=== PATIENT | female | born 1970 | race Caucasian/White ===

== ENCOUNTER 2021-01-07 15:19 | Outpatient (CLI) | payer OTHER, SELFPAY ==
--- NOTE | ~2021-01-07 | MM_ITS ---
EXAMINATION: MM scrn yosi implant BI w cheli HISTORY: Screening mammogram TECHNIQUE: Craniocaudal and mediolateral oblique 3-D tomosynthesis images with implant displacement a nd synthetic 2-D images were generated. Craniocaudal and mediolateral oblique views of the breasts wi thout implant displacement were obtained using full field digital mammography. CAD analysis was submi tted and interpreted. COMPARISON: 08/11/2016, 12/29/2014, 12/26/2013 BREAST PARENCHYMAL COMPOSITION: There are scattered areas of fibroglandular density. FINDINGS: Small right breast masses demonstrate interval decrease in size comparison examinations, co nsistent with benign findings. There is no evidence of suspicious mass, calcification, or architectur al distortion to suggest malignancy in either breast. There has been no suspicious interval change. IMPRESSION: 1. No mammographic evidence of malignancy. 2. Recommend routine screening mammography in one year. BI-RADS Category 2: Benign finding(s). Reviewed, dictated and finalized at location A.
== END 2021-01-07 15:20 | disposition home or self-care (01) ==
LOC: ANHIMG 15:20
PROVIDERS: PCP Nurse Practitioner; Visit Provider Nurse Practitioner
DX: Z12.31 Encounter for screening mammogram for malignant neoplasm of breast (principal)
CPT/HCPCS: 77063; 77067

== ENCOUNTER → 2021-03-09 01:20 | Outpatient (CLI) | payer OTHER, SELFPAY ==
[2021-03-10 20:43] LABS: SARS-CoV-2 RNA PCR Negative
== END ==
PROVIDERS: PCP Family Medicine; Visit Provider Family Medicine
DX: Z20.822 Contact with and (suspected) exposure to COVID-19 (principal)
CPT/HCPCS: C9803; U0003; U0005

== ENCOUNTER 2022-04-21 09:13 | Outpatient (CLI) | payer OTHER, SELFPAY ==
--- NOTE | ~2022-04-21 | MM_ITS ---
EXAMINATION: MM scrn yosi implant BI w cheli HISTORY: Screening mammogram TECHNIQUE: Craniocaudal and mediolateral oblique 3-D tomosynthesis images with implant displacement a nd synthetic 2-D images were generated. Craniocaudal and mediolateral oblique views of the breasts wi thout implant displacement were obtained using full field digital mammography. CAD analysis was submi tted and interpreted. COMPARISON: Comparison to multiple prior studies sequentially, with oldest reviewed study dated 07/2014. BREAST PARENCHYMAL COMPOSITION: There are scattered areas of fibroglandular density. FINDINGS: There are bilateral subpectoral silicone implants. There is no evidence of suspicious mass, calcification, or architectural distortion to suggest malignancy in either breast. There has been no suspicious interval change. IMPRESSION: 1. No mammographic evidence of malignancy. 2. Recommend routine screening mammography in one year. BI-RADS Category 1: Negative Reviewed, dictated and finalized at location A.
== END 2022-04-21 09:14 | disposition home or self-care (01) ==
LOC: ANHIMG 09:14
PROVIDERS: PCP Family Medicine; Visit Provider Nurse Practitioner
DX: Z12.31 Encounter for screening mammogram for malignant neoplasm of breast (principal)
CPT/HCPCS: 77063; 77067

== ENCOUNTER 2022-09-14 15:50 | Outpatient (CLI) | payer OTHER, SELFPAY ==
--- NOTE | ~2022-09-14 | XR_ITS ---
XR shoulder RT min 2V 09/14/2022 16:15 Indication: Right shoulder pain Procedure: 4 views right shoulder Comparison: No prior studies for comparison. Findings: No fracture, subluxation or dislocation. There is anatomic alignment. No erosive changes. V isualized lung parenchyma is unremarkable. Impression: 1: No significant bone or joint abnormality. Reviewed, dictated and finalized at location A. Impression: 1: No significant bone or joint abnormality.
== END 2022-09-14 15:51 | disposition home or self-care (01) ==
PROVIDERS: PCP Family Medicine; Visit Provider Family Medicine
DX: M25.511 Pain in right shoulder (principal)
CPT/HCPCS: 73030

== ENCOUNTER 2024-06-26 04:57 | Emergency (ER) | payer OTHER, SELFPAY ==
--- NOTE | ~2024-06-26 | XR_ITS ---
EXAMINATION: XR knee RT 3V DATE: 06/26/2024 07:16 INDICATION: Right knee pain. TECHNIQUE: 3 views of right knee were obtained. COMPARISON: None. FINDINGS: Alignment is normal. No fracture. There is mild osteoarthritis of medial and patellofemoral compartments characterized by tiny osteophytes. There is a small knee joint effusion. IMPRESSION: 1. Mild right knee osteoarthritis. 2. Small knee joint effusion. Reviewed, dictated and finalized at location A. ING INSULATION BLOWER
[2024-06-26 05:02] VITALS: BP 120/61; PULSE 65; RESP 18; TEMP 36.3; O2SAT 100
[2024-06-26 06:51] VITALS: BP 115/72; PULSE 71; RESP 18; O2SAT 100
--- NOTE | 2024-06-26 07:35 | ED.GENADULT ---
HPI - General Adult General Chief complaint: Extremity Injury, Lower Stated complaint: R knee pain Time Seen by Provider: 06/26/24 06:50 History of Present Illness HPI narrative: 54-year-old female presenting to the emergency department for evaluation for right knee pain. 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 Patient states that the pain is worsened when stepping out of her truck and she impact on her right knee. Patient states the pain does tend to improve a little bit with further ambulation. Patient reports over the last few days the pain has continued to worsening even does bother her at nighttime. Related Data Home Medications ?Medication ?Instructions ?Recorded ?Confirmed ?Last Taken ?Type izbaawcataag-Sj-ngwy-minerals tablet PO 12/15/20 12/11/23 Unknown History (Multiple Vitamin, Womens tablet) Allergies Allergy/AdvReac Type Severity Reaction Status Date / Time No Known Allergies Allergy Unknown Verified 06/26/24 10:59 Review of Systems Review of Systems: All systems reviewed & are unremarkable except as noted in HPI and below PMFSH Past Medical History Medical History Recurrent herpes labialis COVID Well woman exam with routine gynecological exam Vitamin D deficiency Recurrent low back pain Anxiety Hypothyroidism, unspecified Surgical History Surgical History History of lumpectomy of left breast (~10/2011) H/O breast augmentation (~05/2015) Social History Social History Social History: Caffeine-coffee daily Smoking status: Never smoker Second hand tobacco smoke exposure: Yes Alcohol intake: current Alcohol use details: 2x a week Substance use: unknown Lack of Transportation: No Lack of Food: Never True Current Housing: I Have Housing Concerned About Future Housing: No Difficulty Paying Gas/Electric Bills: No Difficulty Paying for Meds: No Currently Unemployed: No Education: Associate Degree Difficulty w/ Childcare or Family Care: No Exam Narrative: APPEARANCE: Well appearing, no pain, no distress, well-nourished. HEAD: normocephalic, atraumatic. EYES: PERRLA/EOMI, conjunctivae clear. NOSE: Normal no drainage EARS:TMS clear with good light reflex. THROAT: Pharynx clear, no exudate. NECK: Supple. No adenopathy, no masses. RESPIRATORY: Airway patent, respirations nonlabored. Clear to auscultation bilaterally, no rales, rhonchi, wheezing. CARDIOVASCULAR: Regular rate and rhythm without murmurs rubs or gallops. ABDOMINAL: Soft, nontender, nondistended, normal bowel sounds MUSCULOSKELETAL: Moves all extremities. Strength/ROM intact, No edema, No calf tenderness. NEURO: Alert. Cranial nerves II through XII intact. Good gait. Good coordination SKIN: Warm, dry. Normal Color Course Vital Signs Vital signs: Vital Signs Temperature 97.4 F L 06/26/24 05:02 Pulse Rate 65 06/26/24 05:02 Respiratory Rate 18 06/26/24 05:02 Blood Pressure 120/61 06/26/24 05:02 Pulse Oximetry 100 06/26/24 05:02 Oxygen Delivery Room Air 06/26/24 05:02 Temperature 97.3 F L 06/26/24 08:32 Pulse Rate 71 06/26/24 06:51 Respiratory Rate 16 06/26/24 08:32 Blood Pressure 115/72 06/26/24 06:51 Pulse Oximetry 100 06/26/24 06:51 Oxygen Delivery Room Air 06/26/24 05:02 Medical Decision Making MDM Narrative Medical decision making narrative: 54-year-old female presenting to the emergency department for evaluation for right knee pain. Patient does work as a registered mail clerk and thinks she may have strained her knee. X-ray showed no acute fracture dislocation. X-rays do show osteoarthritis and a small knee effusion. Patient has no significant edema or ecchymosis of the right knee. Patient was offered crutches and knee immobilizer for limited weight-bearing. Patient declined the crutches and prefers to wear a knee brace. Patient was educated on home treatment and the importance having close follow-up with Orthopedics. Differential Diagnosis Differential Diagnosis: Osteoarthritis, knee contusion, knee effusion, knee strain Vital Signs Vital Signs: Vital Signs Temperature 97.4 F L 06/26/24 05:02 Pulse Rate 65 06/26/24 05:02 Respiratory Rate 18 06/26/24 05:02 Blood Pressure 120/61 06/26/24 05:02 Pulse Oximetry 100 12/26/24 05:02 Oxygen Delivery Room Air 06/26/24 05:02 Temperature 97.3 F L 06/26/24 08:32 Pulse Rate 71 06/26/24 06:51 Respiratory Rate 16 06/26/24 08:32 Blood Pressure 115/72 06/26/24 06:51 Pulse Oximetry 100 06/26/24 06:51 Oxygen Delivery Room Air 06/26/24 05:02 Imaging Data Radiologist's impression: Impressions Knee X-Ray 06/26/24 07:21 IMPRESSION: 1. Mild right knee osteoarthritis. 2. Small knee joint effusion. Discharge Plan Discharge Clinical Impression: Acute pain of right knee Patient Disposition: Home, Self-Care Condition: Stable Instructions: Antibiotic Form, Knee Pain (ED) Additional Instructions: Crutches were recommended for limited weight-bearing but you preferred to just use the knee brace. If you have any worsening symptoms please call or return to the emergency department. Have close follow-up with your primary care physician and with orthopedics. Scheduled ibuprofen to help with inflammation. [place] as needed for additional pain. If you have any worsening symptoms then please call or return to the emergency department. Patient Language: Tristanian Prescriptions: New hydrocodone-acetaminophen 5-325 mg tablet 1 tablet PO Q12H PRN (Reason: pain) Qty: 10 0RF No Action meloxicam 15 mg tablet 15 mg PO DAILY Qty: 30 0RF valacyclovir 1 gram tablet 1,000 mg PO Q12H PRN (Reason: cold sores) Qty: 20 0RF Rx Instructions: 2 tabs po bid for 1 day as needed for cold sores Multiple Vitamin, Womens Tablet PO cyclobenzaprine 5 mg tablet See Rx Instructions .ROUTE .COMPLEX Qty: 30 1RF Dose Instruction: TAKE 1 TABLET BY MOUTH EVERY DAY AT BEDTIME NEEDED FOR MUSCLE SPASM Rx Instructions: TAKE 1 TABLET BY MOUTH EVERY DAY AT BEDTIME NEEDED FOR MUSCLE SPASM levothyroxine 112 mcg tablet 112 mcg PO DAILY Qty: 90 1RF alprazolam 0.5 mg tablet 0.25 mg PO BID PRN (Reason: anxiety) Qty: 30 0RF Follow-up/Referrals: John Smith MD [Primary Care Provider] - Antonio Sierra MD [Physician] - Stand Alone Forms: Work/School Release IP
[2024-06-26 08:32] VITALS: RESP 16; TEMP 36.3
--- OUTSIDE RECORDS SUMMARY | 2024-07-03 05:23 | XMS_ITS | Encounter Summary ---
Author Organization [facility] Address [address] [place] [address]. [place] [address] [place] [address] Care Team Providers Care Band Leader Name Role Phone Harjinder Calle MD Primary Care Provider Unava Harjinder Taveras MD Primary Care Provider Unava Harjinder Taveras MD Primary Care Provider Unava ilable Encounter Details Date Type Department Care Team (Late st Contact Info) Description 05/07/2007 Abstract [facility] CONVERSION [address] [place] [address] Hawa Borrero, CUSTOMER SERVICE SUPERVISOR [address] [place] [address] Social History Tobacco Use Types Packs/Day Years Used Date Smoking Tobacco: Never Assessed Comments Unknown Sex and Gender Information Value Date Recorded Sex Assigned at Not on file Legal Sex Female 7:22 PM CDT Gender Identity Not on file Sexual Orientation Not on file documented as of this encounter Plan of Treatment Not on file documented as of this encounter Visit Diagnoses Not on filedocumented in this encounter Care Teams Band Leader Relationship Specialty Start Date End Date Harjinder Calle MD PCP - General 07/19/12 Harjinder Calle MD PCP - General 07/18/12 07/18/12 Harjinder Calle MD PCP - General 07/15/12 07/17/12 documented as of this encounter
--- OUTSIDE RECORDS SUMMARY | 2024-07-03 05:23 | XMS_ITS | Encounter Summary ---
Author Organization [facility] Address [address] [place] [address]. [place] [address] [place] [address] Care Team Providers Care Airframe And Powerplant Mechanic Name Role Phone Harjinder Calle MD Primary Care Provider Unava Harjinder Taveras MD Primary Care Provider Unava Harjinder Taveras MD Primary Care Provider Unava ilable Encounter Details Date Type Department Care Team (Late st Contact Info) Description 03/15/2011 Abstract [facility] [address] [place], [place] [id number] Bri Mccloud MD [address] [place] [address] Social History Tobacco Use Types Packs/Day Years Used Date Smoking Tobacco: Never Assessed Comments Unknown Sex and Gender Information Value Date Recorded Sex Assigned at Not on file Legal Sex Female 7:22 PM CDT Gender Identity Not on file Sexual Orientation Not on file documented as of this encounter Plan of Treatment Not on file documented as of this encounter Visit Diagnoses Diagnosis Special screening examination for other specified viral diseases documented in this encounter Care Teams Airframe And Powerplant Mechanic Relationship Specialty Start Date End Date Harjinder Calle MD PCP - General 07/19/12 Harjinder Calle MD PCP - General 07/18/12 07/18/12 Harjinder Calle MD PCP - General 07/15/12 07/17/12 documented as of this encounter
--- OUTSIDE RECORDS SUMMARY | 2024-07-03 05:23 | XMS_ITS | Encounter Summary ---
Author Organization [facility] Address [address] [place] [address]. [place] [address] [place] [address] Care Team Providers Care Supervisor Die Casting Name Role Phone Harjinder Calle MD Primary Care Provider Unava Harjinder Taveras MD Primary Care Provider Unava Harjinder Taveras MD Primary Care Provider Unava ilable Encounter Details Date Type Department Care Team (Late st Contact Info) Description 07/06/2009 Abstract [facility] CONVERSION [address] [place], [place] [id number] Davon Jurado MD [address] [address] Social History Tobacco Use Types Packs/Day Years [...] on filedocumented in this encounter Care Teams Supervisor Die Casting Relationship Specialty Start Date End Date Harjinder Calle MD PCP - General 07/19/12 Harjinder Calle MD PCP - General 07/18/12 07/18/12 Harjinder Calle MD PCP - General 07/15/12 07/17/12 documented as of this encounter
--- OUTSIDE RECORDS SUMMARY | 2024-07-03 05:23 | XMS_ITS | Encounter Summary ---
Author Organization [facility] Address [address] [place] [address]. [place] [address] [place] [address] Care Team Providers Care Edging Machine Setter Name Role Phone Harjinder Calle MD Primary Care Provider Unava Harjinder Taveras MD Primary Care Provider Unava Harjinder Taveras MD Primary Care Provider Unava ilable Encounter Details Date Type Department Care Team (Late st Contact Info) Description 03/20/2012 Abstract [facility] [address] [place] [address] Hawa Borrero GEAR AND SPLINE GRINDER [address] [place] [address] Social History Tobacco Use Types Packs/Day Years Used Date Smoking Tobacco: Never Assessed Comments Unknown Sex and Gender Information Value Date Recorded Sex Assigned at Not on file Legal Sex Female 7:22 PM CDT Gender Identity Not on file Sexual Orientation Not on file documented as of this encounter Plan of Treatment Not on file documented as of this encounter Visit Diagnoses Diagnosis Screening examination for sexually transmitted disease Screening examination for venereal disease documented in this encounter Care Teams Edging Machine Setter Relationship Specialty Start Date End Date Harjinder Calle MD PCP - General 07/19/12 Harjinder Calle MD PCP - General 07/18/12 07/18/12 Harjinder Calle MD PCP - General 07/15/12 07/17/12 documented as of this encounter
--- OUTSIDE RECORDS SUMMARY | 2024-07-03 05:23 | XMS_ITS | Encounter Summary ---
Author Organization [facility] Address [address] [place] [address]. [place], [place] [address] [place] [address] Care Team Providers Care Footwear Factory Worker Name Role Phone Harjinder Calle MD Primary Care Provider Unava Harjinder Taveras MD Primary Care Provider Unava Harjinder Taveras MD Primary Care Provider Unava ilable Encounter Details Date Type Department Care Team (Late st Contact Info) Description 04/24/2006 Abstract [facility] CONVERSION [address] [place] [address] Harjinder Calle MD Social History Tobacco Use Types Packs/Day Years [...] on filedocumented in this encounter Care Teams Footwear Factory Worker Relationship Specialty Start Date End Date Harjinder Calle MD PCP - General 07/19/12 Harjinder Calle MD PCP - General 07/18/12 07/18/12 Harjinder Calle MD PCP - General 07/15/12 07/17/12 documented as of this encounter
--- OUTSIDE RECORDS SUMMARY | 2024-07-03 05:23 | XMS_ITS | Encounter Summary ---
Author Organization [facility] Address [address] [place] [address]. [place] [address] [place] [address] Care Team Providers Care Mechanical Systems Designer Name Role Phone Harjinder Calle MD Primary Care Provider Unava Harjinder Taveras MD Primary Care Provider Unava Harjinder Taveras MD Primary Care Provider Unava ilable Encounter Details Date Type Department Care Team (Late st Contact Info) Description 11/04/2010 Abstract [facility] [address] [place] [address] Hawa Borrero SENIOR TRAINER [address] [place] [address] Social History Tobacco Use Types Packs/Day Years [...] Visit Diagnoses Diagnosis Special screening examination for chlamydial disease Special screening examination for unspecified chlamydial disease documented in this encounter Care Teams Mechanical Systems Designer Relationship Specialty Start Date End Date Harjinder Calle MD PCP - General 07/19/12 Harjinder Calle MD PCP - General 07/18/12 07/18/12 Harjinder Calle MD PCP - General 07/15/12 07/17/12 documented as of this encounter
--- OUTSIDE RECORDS SUMMARY | 2024-07-03 05:23 | XMS_ITS | Encounter Summary ---
Author Organization [facility] Address [address] [place] [address]. [place], [place] [address] [place] [address] Care Team Providers Care Physical Education Department Chair Name Role Phone Harjinder Calle MD Primary Care Provider Unava Harjinder Taveras MD Primary Care Provider Unava Harjinder Taveras MD Primary Care Provider Unava ilable Encounter Details Date Type Department Care Team (Late st Contact Info) Description 08/23/2010 Abstract [facility] [address] [place] [address] Harjinder Calle MD Social History Tobacco Use [...] as of this encounter Visit Diagnoses Diagnosis Hypothyroidism Unspecified hypothyroidism documented in this encounter Care Teams Physical Education Department Chair Relationship Specialty Start Date End Date Harjinder Calle MD PCP - General 07/19/12 Harjinder Calle MD PCP - General 07/18/12 07/18/12 Harjinder Calle MD PCP - General 07/15/12 07/17/12 documented as of this encounter
--- OUTSIDE RECORDS SUMMARY | 2024-07-03 05:23 | XMS_ITS | Encounter Summary ---
Author Organization [facility] Address [address] [place] [address]. [place], [place] [address] [place] [address] Care Team Providers Care Electro Mechanical Engineer Name Role Phone Harjinder Calle MD Primary Care Provider Unava Harjinder Taveras MD Primary Care Provider Unava Harjinder Taveras MD Primary Care Provider Unava ilable Encounter Details Date Type Department Care Team (Late st Contact Info) Description 07/07/2003 Abstract [facility] CONVERSION [address] [place], [place] [id number] , Generic MD E[place] Social History Tobacco Use Types Packs/Day Years [...] on filedocumented in this encounter Care Teams Electro Mechanical Engineer Relationship Specialty Start Date End Date Harjinder Calle MD PCP - General 07/19/12 Harjinder Calle MD PCP - General 07/18/12 07/18/12 Harjinder Calle MD PCP - General 07/15/12 07/17/12 documented as of this encounter
--- OUTSIDE RECORDS SUMMARY | 2024-07-03 05:23 | XMS_ITS | Encounter Summary ---
Author Organization [facility] Address [address] [place] [address]. [place], [place] [address] [place] [address] Care Team Providers Care Conical Mixer Name Role Phone Harjinder Calle MD Primary Care Provider Unava Harjinder Taveras MD Primary Care Provider Unava Harjinder Taveras MD Primary Care Provider Unava ilable Encounter Details Date Type Department Care Team (Late st Contact Info) Description 08/02/2005 Abstract [facility] CONVERSION [address] [place] [address] Harjinder Calle MD Social History Tobacco Use [...] on filedocumented in this encounter Care Teams Conical Mixer Relationship Specialty Start Date End Date Harjinder Calle MD PCP - General 07/19/12 Harjinder Calle MD PCP - General 07/18/12 07/18/12 Harjinder Calle MD PCP - General 07/15/12 07/17/12 documented as of this encounter
--- OUTSIDE RECORDS SUMMARY | 2024-07-03 05:23 | XMS_ITS | Encounter Summary ---
Author Organization [facility] Address [address] [place] [address]. [place] [address] [place] [address] Care Team Providers Care Ash Collector Name Role Phone Harjinder Calle MD Primary Care Provider Unava Harjinder Taveras MD Primary Care Provider Unava Harjinder Taveras MD Primary Care Provider Unava ilable Encounter Details Date Type Department Care Team (Late st Contact Info) Description 02/12/2008 Abstract [facility] [address] [place], [place] [address] Hawa Borrero, GORE MAKER [address] [place] [address] Social History Tobacco Use Types Packs/Day Years [...] on filedocumented in this encounter Care Teams Ash Collector Relationship Specialty Start Date End Date Harjinder Calle MD PCP - General 07/19/12 Harjinder Calle MD PCP - General 07/18/12 07/18/12 Harjinder Calle MD PCP - General 07/15/12 07/17/12 documented as of this encounter
--- OUTSIDE RECORDS SUMMARY | 2024-07-03 05:23 | XMS_ITS | Encounter Summary ---
Author Organization [facility] Address [address] [place] [address]. [place], [place] [address] [place] [address] Care Team Providers Care Financial Investment Adviser Name Role Phone Harjinder Calle MD Primary Care Provider Unava Harjinder Taveras MD Primary Care Provider Unava Harjinder Taveras MD Primary Care Provider Unava ilable Encounter Details Date Type Department Care Team (Late st Contact Info) Description 03/27/2003 Abstract [facility] CONVERSION [address] [place], [place] [id number] , Generic MD [place] Social History Tobacco [...] on filedocumented in this encounter Care Teams Financial Investment Adviser Relationship Specialty Start Date End Date Harjinder Calle MD PCP - General 07/19/12 Harjinder Calle MD PCP - General 07/18/12 07/18/12 Harjinder Calle MD PCP - General 07/15/12 07/17/12 documented as of this encounter
--- OUTSIDE RECORDS SUMMARY | 2024-07-03 05:23 | XMS_ITS | Encounter Summary ---
Author Organization [facility] Address [address] [place] [address]. [place], [place] [address] [place] [address] Care Team Providers Care Tripoler Name Role Phone Harjinder Calle MD Primary Care Provider Unava Harjinder Taveras MD Primary Care Provider Unava Harjinder Taveras MD Primary Care Provider Unava ilable Encounter Details Date Type Department Care Team (Late st Contact Info) Description 05/19/2009 Abstract [facility] CONVERSION [address] [place] [address] Harjinder Calle MD Social History Tobacco Use [...] on filedocumented in this encounter Care Teams Tripoler Relationship Specialty Start Date End Date Harjinder Calle MD PCP - General 07/19/12 Harjinder Calle MD PCP - General 07/18/12 07/18/12 Harjinder Calle MD PCP - General 07/15/12 07/17/12 documented as of this encounter
--- OUTSIDE RECORDS SUMMARY | 2024-07-03 05:23 | XMS_ITS | Encounter Summary ---
Author Organization [facility] Address [address] [place] [address]. [place] [address] [place] [address] Care Team Providers Care Teenage Program Director Name Role Phone Harjinder Calle MD Primary Care Provider Unava Harjinder Taveras MD Primary Care Provider Unava Harjinder Taveras MD Primary Care Provider Unava ilable Encounter Details Date Type Department Care Team (Late st Contact Info) Description 04/26/2004 Abstract [facility] CONVERSION [address] [place], [place] [address] Hawa Borrero, ENGINEERING TECHNOLOGIST [address] [place] [address] Social History Tobacco Use Types Packs/Day Years [...] on filedocumented in this encounter Care Teams Teenage Program Director Relationship Specialty Start Date End Date Harjinder Calle MD PCP - General 07/19/12 Harjinder Calle MD PCP - General 07/18/12 07/18/12 Harjinder Calle MD PCP - General 07/15/12 07/17/12 documented as of this encounter
--- OUTSIDE RECORDS SUMMARY | 2024-07-03 05:23 | XMS_ITS | Encounter Summary ---
Author Organization [facility] Address [address] [place] [address]. [place], [place] [address] [place] [address] Care Team Providers Care Manager Quality Improvement Name Role Phone Harjinder Calle MD Primary Care Provider Unava Harjinder Taveras MD Primary Care Provider Unava Harjinder Taveras MD Primary Care Provider Unava ilable Encounter Details Date Type Department Care Team (Late st Contact Info) Description 06/02/2009 Abstract [facility] CONVERSION [address] [place] [address] Harjinder Calle MD Social History Tobacco Use [...] on filedocumented in this encounter Care Teams Manager Quality Improvement Relationship Specialty Start Date End Date Harjinder Calle MD PCP - General 07/19/12 Harjinder Calle MD PCP - General 07/18/12 07/18/12 Harjinder Calle MD PCP - General 07/15/12 07/17/12 documented as of this encounter
--- OUTSIDE RECORDS SUMMARY | 2024-07-03 05:23 | XMS_ITS | Encounter Summary ---
Author Organization [facility] Address [address] [place] [address]. [place] [address] [place] [address] Care Team Providers Care Insurance Agency Manager Name Role Phone Harjinder Calle MD Primary Care Provider Unava Harjinder Taveras MD Primary Care Provider Unava Harjinder Taveras MD Primary Care Provider Unava ilable Encounter Details Date Type Department Care Team (Late st Contact Info) Description 01/29/2010 Abstract [facility] CONVERSION [address] [place], [place] [id number] Davon Jurado MD [address] [address] Social History Tobacco Use Types [...] on filedocumented in this encounter Care Teams Insurance Agency Manager Relationship Specialty Start Date End Date Harjinder Calle MD PCP - General 07/19/12 Harjinder Calle MD PCP - General 07/18/12 07/18/12 Harjinder Calle MD PCP - General 07/15/12 07/17/12 documented as of this encounter
--- OUTSIDE RECORDS SUMMARY | 2024-07-03 05:23 | XMS_ITS | Encounter Summary ---
Author Organization [facility] Address [address] [place] [address]. [place], [place] [address] [place] [address] Care Team Providers Care Head Sawyer Name Role Phone Harjinder Calle MD Primary Care Provider Unava Harjinder Taveras MD Primary Care Provider Unava Harjinder Taveras MD Primary Care Provider Unava ilable Encounter Details Date Type Department Care Team (Late st Contact Info) Description 05/01/2006 Abstract [facility] CONVERSION [address] [place] [address] Harjinder Calle MD Social History Tobacco Use [...] on filedocumented in this encounter Care Teams Head Sawyer Relationship Specialty Start Date End Date Harjinder Calle MD PCP - General 07/19/12 Harjinder Calle MD PCP - General 07/18/12 07/18/12 Harjinder Calle MD PCP - General 07/15/12 07/17/12 documented as of this encounter
--- OUTSIDE RECORDS SUMMARY | 2024-07-03 05:23 | XMS_ITS | Encounter Summary ---
Author Organization [facility] Address [address] [place] [address]. [place] [address] [place] [address] Care Team Providers Care Nurse Transplant Name Role Phone Harjinder Calle MD Primary Care Provider Unava Harjinder Taveras MD Primary Care Provider Unava Harjinder Taveras MD Primary Care Provider Unava ilable Encounter Details Date Type Department Care Team (Late st Contact Info) Description 04/19/2006 Abstract [facility] CONVERSION [address] [place] [address] Hawa Borrero, DRESS DRAPER [address] [place] [address] Social History Tobacco Use Types Packs/Day Years [...] on filedocumented in this encounter Care Teams Nurse Transplant Relationship Specialty Start Date End Date Harjinder Calle MD PCP - General 07/19/12 Harjinder Calle MD PCP - General 07/18/12 07/18/12 Harjinder Calle MD PCP - General 07/15/12 07/17/12 documented as of this encounter
--- OUTSIDE RECORDS SUMMARY | 2024-07-03 05:23 | XMS_ITS | Encounter Summary ---
Author Organization [facility] Address [address] [place] [address]. [place], [place] [address] [place] [address] Care Team Providers Care Bed Placement Coordinator Name Role Phone Harjinder Calle MD Primary Care Provider Unava Harjinder Taveras MD Primary Care Provider Unava Harjinder Taveras MD Primary Care Provider Unava ilable Encounter Details Date Type Department Care Team (Late st Contact Info) Description 11/19/2006 Abstract [facility] CONVERSION [address] [place] [address] Harjinder Calle MD Social History Tobacco Use [...] on filedocumented in this encounter Care Teams Bed Placement Coordinator Relationship Specialty Start Date End Date Harjinder Calle MD PCP - General 07/19/12 Harjinder Calle MD PCP - General 07/18/12 07/18/12 Harjinder Calle MD PCP - General 07/15/12 07/17/12 documented as of this encounter
--- OUTSIDE RECORDS SUMMARY | 2024-07-03 05:23 | XMS_ITS | Encounter Summary ---
Author Organization [facility] Address [address] [place] [address]. [place] [address] [place] [address] Care Team Providers Care Military Pay Technician Name Role Phone aHrjinder Calle MD Primary Care Provider Unava Harjinder Taveras MD Primary Care Provider Unava Harjinder Taveras MD Primary Care Provider Unava ilable Encounter Details Date Type Department Care Team (Late st Contact Info) Description 05/06/2008 Abstract [facility] CONVERSION [address] [place] [address] Hawa Borrero, PELT SALTER [address] [place] [address] Social History Tobacco Use Types Packs/Day Years [...] on filedocumented in this encounter Care Teams Military Pay Technician Relationship Specialty Start Date End Date Harjinder Calle MD PCP - General 07/19/12 Harjinder Calle MD PCP - General 07/18/12 07/18/12 Harjinder Calle MD PCP - General 07/15/12 07/17/12 documented as of this encounter
--- OUTSIDE RECORDS SUMMARY | 2024-07-03 05:23 | XMS_ITS | Encounter Summary ---
Author Organization [facility] Address [address] [place] [address]. [place] [address] [place] [address] Care Team Providers Care Diesel Powerplant Supervisor Name Role Phone Harjinder Calle MD Primary Care Provider Unava Harjinder Taveras MD Primary Care Provider Unava Harjinder Taveras MD Primary Care Provider Unava ilable Encounter Details Date Type Department Care Team (Late st Contact Info) Description 02/15/2010 Abstract [facility] CONVERSION [address] [place], [place] [id number] Davon Jurado MD [address] [address] Social History Tobacco Use Types [...] on filedocumented in this encounter Care Teams Diesel Powerplant Supervisor Relationship Specialty Start Date End Date Harjinder Calle MD PCP - General 07/19/12 Harjinder Calle MD PCP - General 07/18/12 07/18/12 Harjinder Calle MD PCP - General 07/15/12 07/17/12 documented as of this encounter
--- OUTSIDE RECORDS SUMMARY | 2024-07-03 05:23 | XMS_ITS | Encounter Summary ---
Author Organization [facility] Address [address] [place] [address]. [place] [address] [place] [address] Care Team Providers Care Senior Java Developer Name Role Phone Harjinder Calle MD Primary Care Provider Unava Harjinder Taveras MD Primary Care Provider Unava Harjinder Taveras MD Primary Care Provider Unava ilable Encounter Details Date Type Department Care Team (Late st Contact Info) Description 03/15/2011 Abstract [facility] [address] [place] [address] Hawa Borrero SWAMPER [address] [place] [address] Social History Tobacco Use Types Packs/Day Years [...] of this encounter Visit Diagnoses Diagnosis Screening for malignant neoplasm of cervix Screening for malignant neoplasm of the cervix documented in this encounter Care Teams Senior Java Developer Relationship Specialty Start Date End Date Harjinder Calle MD PCP - General 07/19/12 Harjinder Calle MD PCP - General 07/18/12 07/18/12 Harjinder Calle MD PCP - General 07/15/12 07/17/12 documented as of this encounter
--- OUTSIDE RECORDS SUMMARY | 2024-07-03 05:23 | XMS_ITS | Encounter Summary ---
Author Organization [facility] Address [address] [place] [address]. [place], [place] [address] [place] [address] Care Team Providers Care Supervisor Alteration Workroom Name Role Phone Harjinder Calle MD Primary Care Provider Unava Harjinder Taveras MD Primary Care Provider Unava Harjinder Taveras MD Primary Care Provider Unava ilable Encounter Details Date Type Department Care Team (Late st Contact Info) Description 05/17/2009 Abstract [facility] Emergency Room [address] [place] [address] Riley Smith MD Social History Tobacco Use Types Packs/Day [...] filedocumented in this encounter Care Teams Supervisor Alteration Workroom Relationship Specialty Start Date End Date Harjinder Calle MD PCP - General 07/19/12 Harjinder Calle MD PCP - General 07/18/12 07/18/12 Harjinder Calle MD PCP - General 07/15/12 07/17/12 documented as of this encounter
--- OUTSIDE RECORDS SUMMARY | 2024-07-03 05:23 | XMS_ITS | Encounter Summary ---
Author Organization [facility] Address [address] [place] [address]. [place], [place] [address] [place] [address] Care Team Providers Care Video Software Engineer Name Role Phone Harjinder Calle MD Primary Care Provider Unava Harjinder Taveras MD Primary Care Provider Unava Harijnder Taveras MD Primary Care Provider Unava ilable Encounter Details Date Type Department Care Team (Late st Contact Info) Description 07/15/2012 Abstract [facility] [address] [place], [place] [id number] Sanna Moss, GRADE TEACHER [address] [facility] [address] [place], [place] [id number] Social History Tobacco Use Types Packs/Day Years Used Date Smoking Tobacco: Never Assessed Comments Unknown Sex and Gender Information Value Date Recorded Sex Assigned at Not on file Legal Sex Female 7:22 PM CDT Gender Identity Not on file Sexual Orientation Not on file documented as of this encounter Plan of Treatment Not on file documented as of this encounter Visit Diagnoses Diagnosis Other chest pain documented in this encounter Care Teams Video Software Engineer Relationship Specialty Start Date End Date Harjinder Calle MD PCP - General 07/19/12 Harjinder Calle MD PCP - General 07/18/12 07/18/12 Harjinder Calle MD PCP - General 07/15/12 07/17/12 documented as of this encounter
--- OUTSIDE RECORDS SUMMARY | 2024-07-03 05:23 | XMS_ITS | Encounter Summary ---
Author Organization [facility] Address [address] [place] [address]. [place], [place] [address] [place] [address] Care Team Providers Care Room Service Food Server Name Role Phone Harjinder Calle MD Primary Care Provider Unava Harjinder Taveras MD Primary Care Provider Unava Harjinder Taveras MD Primary Care Provider Unava ilable Encounter Details Date Type Department Care Team (Late st Contact Info) Description 04/29/2007 Abstract [facility] CONVERSION [address] [place] [address] Harjinder Calle MD Social History Tobacco Use [...] on filedocumented in this encounter Care Teams Room Service Food Server Relationship Specialty Start Date End Date Harjinder Calle MD PCP - General 07/19/12 Harjinder Calle MD PCP - General 07/18/12 07/18/12 Harjinder Calle MD PCP - General 07/15/12 07/17/12 documented as of this encounter
--- OUTSIDE RECORDS SUMMARY | 2024-07-03 05:23 | XMS_ITS | Encounter Summary ---
Author Organization [facility] Address [address] [place] [address]. [place], [place] [address] [place] [address] Care Team Providers Care Java Engineer Name Role Phone Harjinder Calle MD Primary Care Provider Unava Harjinder Taveras MD Primary Care Provider Unava Harjinder Taveras MD Primary Care Provider Unava ilable Encounter Details Date Type Department Care Team (Late st Contact Info) Description 07/21/2008 Abstract [facility] CONVERSION [address] [place] [address] Harjinder Calle MD Social History Tobacco Use [...] on filedocumented in this encounter Care Teams Java Engineer Relationship Specialty Start Date End Date Harjinder Calle MD PCP - General 07/19/12 Harjinder Calle MD PCP - General 07/18/12 07/18/12 Harjinder Calle MD PCP - General 07/15/12 07/17/12 documented as of this encounter
--- OUTSIDE RECORDS SUMMARY | 2024-07-03 05:23 | XMS_ITS | Encounter Summary ---
Author Organization [facility] Address [address] [place] [address]. [place], [place] [address] [place] [address] Care Team Providers Care Ordnance Keeper Name Role Phone Harjinder Calle MD Primary Care Provider Unava Harjinder Taveras MD Primary Care Provider Unava Harjinder Taveras MD Primary Care Provider Unava ilable Encounter Details Date Type Department Care Team (Late st Contact Info) Description 11/20/2003 Abstract [facility] CONVERSION [address] [place], [place] [id number] , Generic MD Ely Social History Tobacco [...] on filedocumented in this encounter Care Teams Ordnance Keeper Relationship Specialty Start Date End Date Harjinder Calle MD PCP - General 07/19/12 Harjinder Calle MD PCP - General 07/18/12 07/18/12 Harjinder Calle MD PCP - General 07/15/12 07/17/12 documented as of this encounter
--- OUTSIDE RECORDS SUMMARY | 2024-07-03 05:23 | XMS_ITS | Encounter Summary ---
Author Organization [facility] Address [address] [place] [address]. [place], [place] [address] [place] [address] Care Team Providers Care Bed Teacher Name Role Phone Harjinder Calle MD Primary Care Provider Unava Harjinder Taveras MD Primary Care Provider Unava Harjinder Taveras MD Primary Care Provider Unava ilable Encounter Details Date Type Department Care Team (Late st Contact Info) Description 08/29/2001 Abstract [facility] CONVERSION [address] [place], [place] [id number] , Generic MD E[place] Social History Tobacco [...] filedocumented in this encounter Care Teams Bed Teacher Relationship Specialty Start Date End Date Harjinder Calle MD PCP - General 07/19/12 Harjinder Calle MD PCP - General 07/18/12 07/18/12 Harjinder Calle MD PCP - General 07/15/12 07/17/12 documented as of this encounter
--- OUTSIDE RECORDS SUMMARY | 2024-07-03 05:23 | XMS_ITS | Encounter Summary ---
Author Organization [facility] Address [address] [place] [address]. [place] [address] [place] [address] Care Team Providers Care Punch Card Operator Name Role Phone Harjinder Calle MD Primary Care Provider Anshul parsons Encounter Details Date Type Department Care Team (Late st Contact Info) Description 07/19/[address] [facility] [address] [place] [address] Social History Tobacco Use Types Packs/Day Years Used Date Smoking Tobacco: Never Assessed Comments Unknown Sex and Gender Information Value Date Recorded Sex Assigned at Not on file Legal Sex Female 7:22 PM CDT Gender Identity Not on file Sexual Orientation Not on file documented as of this encounter Plan of Treatment Not on file documented as of this encounter Visit Diagnoses Diagnosis Abdominal pain Abdominal pain, unspecified site documented in this encounter Care Teams Punch Card Operator Relationship Specialty Start Date End Date Harjinder Calle MD PCP - General 07/19/12 documented as of this encounter
--- OUTSIDE RECORDS SUMMARY | 2024-07-03 05:23 | XMS_ITS | Clinical Summary ---
Author Organization [facility] Address [address] [place] [address]. [place], [place] [address] [place] [address] Care Team Providers Care Academic Success Coordinator Name Role Phone Harjinder Calle MD Primary Care Provider Unava ilable Social History Tobacco Use Types Packs/Day Years Used Date Smoking Tobacco: Never Assessed Comments Unknown Sex and Gender Information Value Date Recorded Sex Assigned at Not on file Legal Sex Female 7:22 PM CDT Gender Identity Not on file Sexual Orientation Not on file Plan of Treatment Health Maintenance Due Date Last Done Comments Cervical Cancer Screening Pa p Smear (Age 30 to 64) Every 3 Years 1971 Colorectal Cancer Screening Colonoscopy (10 Years) 1971 Annual Physical 1974 Hepatitis C 1989 DTaP, Tdap and Td Vaccines ( 1 - Tdap) 1990 Hepatitis B Vaccines (1 of 3 - 19+ 3-dose series) 1990 Cervical Cancer Screening Pa p with HPV Testing (Age 30 to 64) Every 5 Years 2001 Cervical Cancer Screening with HPV 2001 Mammogram Screening 2011 Zoster Vaccines (1 of 2) 2021 COVID-19 Vaccine (2023-2 5 season) 2024 Influenza Adult (#1) 2024 Meningococcal Vaccine Aged Out No stormy vicente eligible based on patient's age to complete this topic Pneumococcal Vaccine: Pediat rics (0 to 5 Years) and At-Risk Patients (6 to 64 Years) Aged Out No longer eligible b ased on patient's age to complete this topic RSV Immunizations Under 20 Months Aged Out No longer eligible based on patient's age to complete this topic Care Teams Academic Success Coordinator Relationship Specialty Start Date End Date Harjinder Calle MD PCP - General 07/19/12
--- OUTSIDE RECORDS SUMMARY | 2024-07-03 05:23 | XMS_ITS | Encounter Summary ---
Author Organization [facility] Address [address] [place] [address]. [place], [place] [address] [place] [address] Care Team Providers Care Hospital Medical Biller Name Role Phone Harjinder Calle MD Primary Care Provider Unava Harjinder Taveras MD Primary Care Provider Unava Harjinder Taveras MD Primary Care Provider Unava ilable Encounter Details Date Type Department Care Team (Late st Contact Info) Description 10/09/2002 Abstract [facility] CONVERSION [address] [place] [address] , Generic Conversion, Social History Tobacco Use Types Packs/Day Years [...] on filedocumented in this encounter Care Teams Hospital Medical Biller Relationship Specialty Start Date End Date Harjinder Calle MD PCP - General 07/19/12 Harjinder Calle MD PCP - General 07/18/12 07/18/12 Harjinder Calle MD PCP - General 07/15/12 07/17/12 documented as of this encounter
--- OUTSIDE RECORDS SUMMARY | 2024-07-03 05:23 | XMS_ITS | Encounter Summary ---
Author Organization [facility] Address [address] [place] [address]. [place], [place] [address] [place] [address] Care Team Providers Care Records Management Analyst Name Role Phone Harjinder Calle MD Primary Care Provider Unava Harjinder Taveras MD Primary Care Provider Unava Harjinder Taveras MD Primary Care Provider Unava ilable Encounter Details Date Type Department Care Team (Late st Contact Info) Description 06/01/2004 Abstract [facility] CONVERSION [address] [place] [address] Harjinder Calle MD Social History Tobacco Use [...] on filedocumented in this encounter Care Teams Records Management Analyst Relationship Specialty Start Date End Date Harjinder Calle MD PCP - General 07/19/12 Harjinder Calle MD PCP - General 07/18/12 07/18/12 Harjinder Calle MD PCP - General 07/15/12 07/17/12 documented as of this encounter
--- OUTSIDE RECORDS SUMMARY | 2024-07-03 05:23 | XMS_ITS | Encounter Summary ---
Author Organization [facility] Address [address] [place] [address]. [place], [place] [address] [place] [address] Care Team Providers Care Teaseler Name Role Phone Harjinder Calle MD Primary Care Provider Unava Harjinder Taveras MD Primary Care Provider Unava Harjinder Taveras MD Primary Care Provider Unava ilable Encounter Details Date Type Department Care Team (Late st Contact Info) Description 12/18/2007 Abstract [facility] CONVERSION [address] [place] [address] Harjinder Calle MD Social History Tobacco Use [...] on filedocumented in this encounter Care Teams Teaseler Relationship Specialty Start Date End Date Harjinder Calle MD PCP - General 07/19/12 Harjinder Calle MD PCP - General 07/18/12 07/18/12 Harjinder Calle MD PCP - General 07/15/12 07/17/12 documented as of this encounter
--- OUTSIDE RECORDS SUMMARY | 2024-07-03 05:23 | XMS_ITS | Encounter Summary ---
Author Organization [facility] Address [address] [place] [address]. [place], [place] [address] [place] [address] Care Team Providers Care Vice President Of Advertising Name Role Phone Harjinder Calle MD Primary Care Provider Unava Harjinder Taveras MD Primary Care Provider Unava Harjinder Taveras MD Primary Care Provider Unava ilable Encounter Details Date Type Department Care Team (Late st Contact Info) Description 03/10/2003 Abstract [facility] CONVERSION [address] [place], [place] [id number] , Generic MD E[place] Social History Tobacco [...] on filedocumented in this encounter Care Teams Vice President Of Advertising Relationship Specialty Start Date End Date Harjinder Calle MD PCP - General 07/19/12 Harjinder Calle MD PCP - General 07/18/12 07/18/12 Harjinder Calle MD PCP - General 07/15/12 07/17/12 documented as of this encounter
--- OUTSIDE RECORDS SUMMARY | 2024-07-03 05:23 | XMS_ITS | Encounter Summary ---
Author Organization [facility] Address [address] [place] [address]. [place] [address] [place] [address] Care Team Providers Care Soft Shoe Dancer Name Role Phone Harjinder Calle MD Primary Care Provider Unava ilable Harjinder Calle MD Primary Care Provider Unava ilable Encounter Details Date Type Department Care Team (Late st Contact Info) Description 07/18/[address] [facility] [address] [facility] [place] [address] Stephanie Nicole MD [address] [facility] [address] [place], [place] [address] Social History Tobacco Use Types Packs/Day Years [...] of this encounter Visit Diagnoses Diagnosis Other specified sites of sprains and strains documented in this encounter Care Teams Soft Shoe Dancer Relationship Specialty Start Date End Date Harjinder Calle MD PCP - General 07/19/12 Harjinder Calle MD PCP - General 07/18/12 07/18/12 documented as of this encounter
--- OUTSIDE RECORDS SUMMARY | 2024-07-03 05:23 | XMS_ITS | Encounter Summary ---
Author Organization [facility] Address [address] [place] [address]. [place], [place] [address] [place] [address] Care Team Providers Care Conservation Agent Name Role Phone Harjinder Calle MD Primary Care Provider Unava Harjinder Taveras MD Primary Care Provider Unava Harjinder Taveras MD Primary Care Provider Unava ilable Encounter Details Date Type Department Care Team (Late st Contact Info) Description 05/31/2009 Abstract [facility] CONVERSION [address] [place] [address] Harjinder Calle MD Social History Tobacco Use [...] on filedocumented in this encounter Care Teams Conservation Agent Relationship Specialty Start Date End Date Harjinder Calle MD PCP - General 07/19/12 Harjinder Calle MD PCP - General 07/18/12 07/18/12 Harjinder Calle MD PCP - General 07/15/12 07/17/12 documented as of this encounter
--- OUTSIDE RECORDS SUMMARY | 2024-07-03 05:23 | XMS_ITS | Encounter Summary ---
Author Organization [facility] Address [address] [place] [address]. [place] [address] [place] [address] Care Team Providers Care Piping Design Specialist Name Role Phone Harjinder Calle MD Primary Care Provider Unava Harjinder Taveras MD Primary Care Provider Unava Harjinder Taveras MD Primary Care Provider Unava ilable Encounter Details Date Type Department Care Team (Late st Contact Info) Description 10/10/2009 Abstract [facility] Emergency Room [address] [place], [place] [id number] Leann Trinh MD [address] [place] [address] Social History Tobacco Use Types Packs/Day Years [...] on filedocumented in this encounter Care Teams Piping Design Specialist Relationship Specialty Start Date End Date Harjinder Calle MD PCP - General 07/19/12 Harjinder Calle MD PCP - General 07/18/12 07/18/12 Harjinder Calle MD PCP - General 07/15/12 07/17/12 documented as of this encounter
--- OUTSIDE RECORDS SUMMARY | 2024-07-03 05:23 | XMS_ITS | Encounter Summary ---
Author Organization [facility] Address [address] [place] [address]. [place], [place] [id number] [place] [address] Care Team Providers Care Ruling Machine Set Up Operator Name Role Phone Harjinder Calle MD Primary Care Provider Unava Harjinder Taveras MD Primary Care Provider Unava Harjinder Taveras MD Primary Care Provider Unava ilable Encounter Details Date Type Department Care Team (Late st Contact Info) Description 03/18/2003 Abstract [facility] CONVERSION [address] [place], [place] [id number] , Generic MD [place] Social History Tobacco [...] on filedocumented in this encounter Care Teams Ruling Machine Set Up Operator Relationship Specialty Start Date End Date Harjinder Calle MD PCP - General 07/19/12 Harjinder Calle MD PCP - General 07/18/12 07/18/12 Harjinder Calle MD PCP - General 07/15/12 07/17/12 documented as of this encounter
== END 2024-06-26 08:33 | disposition home or self-care (01) ==
PROVIDERS: Emergency Provider Emergency Medicine; PCP Family Medicine
DX: M25.561 Pain in right knee (principal); F41.9 Anxiety disorder, unspecified; E03.9 Hypothyroidism, unspecified
CPT/HCPCS: 73562; 99283

== ENCOUNTER 2024-07-18 07:09 | Outpatient (CLI) | payer OTHER, SELFPAY ==
--- NOTE | ~2024-07-18 | MR_ITS ---
EXAMINATION: MR knee RT wo con DATE: 07/18/2024 07:48 INDICATION: Knee pain TECHNIQUE: Magnetic resonance imaging (MRI) of the right knee was performed without intravenous contr ast. Sequences included coronal PD-weighted FSE, coronal PD-weighted FS FSE, sagittal T2-weighted FS E, sagittal PD-weighted FS FSE and axial PD weighted fat saturated FSE. COMPARISON: None. FINDINGS: Medial compartment: There is a longitudinal horizontal tear of the posterior horn and posterior body of the medial menisc us. The tear plane and contacts the inferior articular surface beginning near the free edge at the la teral margin of the tear and to the peripheral third of the articular surface at the posterior aspect of the body. Articular cartilage is normal. Lateral compartment: Lateral meniscus is normal. Articular cartilage is normal. Patellofemoral compartment: There is partial thickness chondral fissuring involving less than 50% the cartilage thickness at the medial side of the lateral patellar facet. There is mild chondral surface regularity along the inferi or aspect of the trochlear groove and medial trochlea. Ligaments and tendons: Anterior and posterior cruciate ligaments are normal. The medial collateral ligament and fibular siobhan ateral ligament complex are normal. The extensor mechanism is normal. The visualized medial and later al hamstring tendons as well as the iliotibial band are normal. Fluid: Small knee joint effusion. No loose osteochondral bodies identified. Osseous/other: Bone island underlying the trochlear groove. Otherwise normal marrow signal. No fracture or pathologi c marrow replacing process. IMPRESSION: 1. Tear of the posterior horn and posterior body of the medial meniscus. 2. Minimal osteoarthritis with regions of moderate grade chondromalacia in the patellofemoral compart ment. 2. Small knee joint effusion. Reviewed, dictated and finalized at location B. NT AND CONCRETE PLANT WORKER IMPRESSION: 1. Tear of the posterior horn and posterior body of the medial meniscus. 2. Minimal osteoarthritis with regions of moderate grade chondromalacia in the patellofemoral compartment. 2. Small knee joint effusion.
== END 2024-07-18 07:10 | disposition home or self-care (01) ==
PROVIDERS: PCP Orthopaedic Surgery; Referring Provider Family Medicine; Visit Provider Orthopaedic Surgery
DX: S83.241A Other tear of medial meniscus, current injury, right knee, initial encounter (principal); X58.XXXA Exposure to other specified factors, initial encounter; M25.461 Effusion, right knee; M17.11 Unilateral primary osteoarthritis, right knee
CPT/HCPCS: 73721

== ENCOUNTER 2024-10-16 14:06 | Outpatient (CLI) | payer OTHER, SELFPAY ==
--- NOTE | ~2024-10-16 | MM_ITS ---
EXAMINATION: MM scrn yosi implant BI w cheli HISTORY: Screening mammogram TECHNIQUE: Craniocaudal and mediolateral oblique 3-D tomosynthesis images with implant displacement a nd synthetic 2-D images were generated. Craniocaudal and mediolateral oblique views of the breasts wi thout implant displacement were obtained using full field digital mammography. CAD analysis was submi tted and interpreted. COMPARISON: Comparison to multiple prior studies sequentially, with oldest reviewed study dated 08/11. BREAST PARENCHYMAL COMPOSITION: Dense: The breasts are heterogeneously dense, which may obscure small masses FINDINGS: There is no evidence of suspicious mass, calcification, or architectural distortion to sugg est malignancy in either breast. There has been no suspicious interval change. IMPRESSION: 1. No mammographic evidence of malignancy. 2. Recommend routine screening mammography in one year. BI-RADS Category 1: Negative Reviewed, dictated and finalized at location B.
--- OUTSIDE RECORDS SUMMARY | 2024-10-16 14:21 | XMS_ITS | Encounter Summary ---
Author Organization [facility] Address [address] [place] [address] Phone Care Team Providers Care Assistant Football Coach Name Role Phone Luc Mercer MD, Oscar A. Primary Care Provider Jacqueline Smith MD Primary Care Provider Encounter Details Date Type Department Care Team (Latest Contact Info) Description 05/11/2017 Orders Only [facility] CONVERSION Scanning, Provider Social History Tobacco Use Types Packs/Day Years Used Date Smoking Tobacco: Former Comments Unknown Sex and Gender Information Value Date Recorded Sex Assigned at Not on file Legal Sex Female 5:32 PM FREELANCE PHOTOGRAPHER Gender Identity Not on file Sexual Orientation Not on file documented as of this encounter Plan of Treatment Not on file documented as of this encounter Procedures Procedure Name Priority Date/Time Associated Diagnosis Comments OBSTETRIC/GYNECOLOGY ULTRASONOGRAPHY REPORT 05/11/2017 10:52 AM FREELANCE PHOTOGRAPHER documented in this encounter Results * OBSTETRIC/GYNECOLOGY ULTRASONOGRAPHY REPORT (05/11/2017 10:52 AM FREELANCE PHOTOGRAPHER) Anatomical Region Laterality Modality Ultrasound us Provider Scanning IMG OB US PROCEDURES Final Res ult documented in this encounter Visit Diagnoses Not on filedocumented in this encounter Care Teams Assistant Football Coach Relationship Specialty Start Date End Date Harjinder Calle Jr., MD [address] [place] [address] PCP - General 04/27/17 10/12/24 Jacqueline Smith MD [address] [facility] [address] [place] [address] PCP - General Family Practice 10/13/24 documented as of this encounter
--- OUTSIDE RECORDS SUMMARY | 2024-10-16 14:21 | XMS_ITS | Referral Summary ---
Author Organization [facility] [address] [facility] Address [address] [place] [address] Care Team Providers Care Cmo Name Role Phone Jacqueline Smith MD Primary Care Provider Encounters Date Type Department Care Team Description 10/13/2024 8:03 AM CDT - 10/13/2024 11:59 PM CDT Hospital Encounter [facility] Di[facility] Imaging [address] [place] [address] Acute medial meniscus tear of right knee, initial encounter; Primary osteoarthritis of right knee Discharge Disposition: Discharge to home or self care 10/13/2024 8:15 AM CDT Office Visit [facility] Medical [facility] [address] [place] [phone] Govind Bess DO Primary osteoarthritis of right knee (Primary Dx); Acute medial meniscus tear of right knee, initial encounter 07/30/2024 8:15 AM PROPELLER MECHANIC Office Visit [facility] Medicine [address] [place] [phone] Sybil Clark PA Acute medial meniscus tear of right knee, initial encounter (Primary Dx) 07/18/2024 - 07/18/2024 11:59 PM PROPELLER MECHANIC Hospital Encounter [facility] [employer] [address] [place] [address] Discharge Disposition: Discharge to home or self care from Last 3 Months Allergies No known active allergies Medications multivitamin capsuleIndicat ions:Vitamin Deficiency Prevention Take 1 capsule by mouth automobile rental agent before breakfast Active cyanocobalamin (Vitamin B-12) 500 mcg tabletIndicati ons:Prevention of Vitamin B12 Deficiency Take 1 tablet (500 mcg total) by mouth automobile rental agent before breakfast Active amitriptyline HCl (AMITRIPTYLINE ORAL)Indicatio ns:Insomnia Take by mouth nightly as needed. Active ALPRAZolam (XANAX) 0.5 mg tablet TAKE 1/2 TABLET ORALLY TWICE A DAY NEEDED FOR ANXIETY 09/18/19 25 Active cyclobenzaprin e (FLEXERIL) 5 mg tablet TAKE 1 TABLET BY MOUTH EVERY DAY AT BEDTIME NEEDED FOR MUSCLE SPASM 09/13/19 25 Active meloxicam (MOBIC) 15 mg tablet Take 1 tablet (15 mg total) by mouth daily 08/25/19 25 Active triamcinolone (KENALOG) 0.1 % ointment Apply topically 2 (two) times a day 08/15/19 25 Active levothyroxine (SYNTHROID) 112 mcg tablet Take 1 tablet (112 mcg total) by mouth daily 09/23/19 25 Active levothyroxine (SYNTHROID, LEVOTHROID) 125 mcg tabletIndicati ons:hypothyroi dism Take 125 mcg by mouth automobile rental agent before breakfast. 1 04/02/20 18 025 Discontinued Hospital, Clinic, or Other Facility Administered Medication Ordered Dose Route Frequency Start Date End Date Status lidocaine (XYLOCAINE) 10 mg/mL (1 %) injection 2 mLIndications:Admi nistration of Local Anesthesia 2 mL One-Time Injection 10/13/2024 10/13/2024 Ended triamcinolone (KENALOG) 40 mg/mL injection 40 mgIndications:Acut e medial meniscus tear of right knee, initial encounter 40 mg intra-artic One-Time Injection 10/13/2024 10/13/2024 Ended Active Problems Problem Noted Date Diagnosed Date Acute medial meniscus tear of right knee 025 Abnormal uterine bleeding 05/22/2018 Overview (05/22/2018): Added automatically from request for surgery [id number] Uterine leiomyoma 05/22/2018 Overview (05/22/2018): Added automatically from request for surgery [id number] Oligomenorrhea 05/22/2018 Overview (05/22/2018): Added automatically from request for surgery [id number] Abnormal uterine bleeding (AUB) 05/19/2018 Overview (05/24/2018): -April 2017: Menses becoming heavier and longer over past 6 months. US with two ~3cm anterior intramural fibroids. Strongly desired to avoid estrogens in setting of LCIS despite counseling that they are safe. Trial of Lysteda and DMPA. Declined EMB. -2017: DMPA failed, declined IUD. Started POPs. Declined EMB. -2017: EMB negative. Negative cotest. Patient decided to move forward with endometrial ablation, working on scheduling for July per pt request. 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 Not on file Not on fi le Last Filed Vital Signs Vital Sign Reading Time Taken Comments Blood Pressure 140/95 06/26/2018 10:30 AM PROPELLER MECHANIC Pulse 62 06/26/2018 10:30 AM PROPELLER MECHANIC Temperature 36.4 C (97.5 F) 06/26/2018 10:20 AM PROPELLER MECHANIC Respiratory Rate 13 06/26/2018 10:30 AM PROPELLER MECHANIC Oxygen Saturation 95% 06/26/2018 10:30 AM PROPELLER MECHANIC Inhaled Oxygen Concentration - - Weight 58.7 kg (129 lb 8 oz) 06/21/2018 11:19 AM PROPELLER MECHANIC Height 162.6 cm (5' 4 ) 06/21/2018 11:19 AM PROPELLER MECHANIC Body Mass Index 22.23 06/21/2018 11:19 AM PROPELLER MECHANIC Plan of Treatment Not on file Procedures Procedure Name Priority Date/Time Associated Diagnosis Comments [place] ARTHROCENTESIS ASPIR&/INJ MAJOR JT/BURSA W/O US Routine 10/13/2024 8:15 AM CDT Acute medial meniscus tear of right knee, initial encounter XR KNEE RIGHT 3 VIEWS Schedule Routine, Read Routine (OP Routine) 10/13/2024 8:11 AM CDT Acute medial meniscus tear of right knee, initial encounter Primary osteoarthritis of right knee MSK MR OUTSIDE REFERENCE Routine 07/18/2024 12:00 AM PROPELLER MECHANIC from Last 3 Months Results * WA ARTHROCENTESIS ASPIR&/INJ MAJOR JT/BURSA W/O US (10/13/2024 8:15 AM CDT) Narrative Govind Bess DO - 10/13/2024 8:15 AM CDT Govind Bess DO 10/13/2024 9:17 AM Large Joint (Hip, Knee, Shoulder) Injection: R knee Performed by: Govind Bess DO Authorized by: Govind Bess DO Large Joint Injection/Aspiration: Consent Given by: Patient Site marked: the procedure site was marked Verbal consent obtained: Yes Procedure Details: Location: Knee Site: R knee Prep: patient was prepped using a clean technique Medications: 2 mL lidocaine 10 mg/mL (1 %); 40 mg triamcinolone 40 mg/mL Patient tolerance: Patient tolerated the procedure well with no immediate complications Govind Bess DO IN CLINIC/BEDSIDE ORDERABLES F inal Result * XR Knee Right 3 Views (10/13/2024 8:11 AM CDT) Anatomical Region Laterality Modality Lower Extremities, Knee Right Computed Radiography 10/13/2024 12:5 0 PM CDT Narrative 10/13/2024 12:50 PM CDT EXAM DESCRIPTION: XR KNEE RIGHT 3 VIEWS REASON FOR STUDY: pain General knee pain since 06/2024, NKI FINDINGS: Three views submitted with comparison 07/18/2024. No acute fracture. Alignment is normal. Mild patellofemoral compartment right knee osteoarthritis. No effusion. IMPRESSION: Mild patellofemoral compartment right knee osteoarthritis. THIS IS AN ELECTRONICALLY VERIFIED FINAL REPORT 10/13/2024 12:50 PM - Electronically signed by Joel Morales M.D. DAVION T: Report ID: [id number] Reading Location: [id number] Procedure Note Joel Morales MD - 10/13/2024 EXAM DESCRIPTION: XR KNEE RIGHT 3 VIEWS REASON FOR STUDY: pain General knee pain since 06/2024, NKI FINDINGS: Three views submitted with comparison 07/18/2024. No acute fracture. Alignment is normal. Mild patellofemoral compartment right knee osteoarthritis. No effusion. IMPRESSION: Mild patellofemoral compartment right knee osteoarthritis. THIS IS AN ELECTRONICALLY VERIFIED FINAL REPORT 10/13/2024 12:50 PM - Electronically signed by Joel RICARDO T: Report ID: [id number] Reading Location: [id number] Govind Bess DO IMG XR PROCEDURES Final Result * MSK MR Outside Reference (07/18/2024 12:00 AM PROPELLER MECHANIC) Narrative RAD_LAUREN_MHB_MHE - 07/30/2024 7:58 AM PROPELLER MECHANIC This order has been auto-finalized and does not contain a result. us Provider Transcribed Order IMG MRI PROCEDURES Fi nal Result RAD_CLARIO_MHB_MHE from Last 3 Months Insurance [employer] HMO [facility] Care Teams Cmo Relationship Specialty Start Date End Date Jacqueline Smith MD [address] [place] [address] [place] [address] PCP - General Family Practice 10/13/24
--- OUTSIDE RECORDS SUMMARY | 2024-10-16 14:21 | XMS_ITS | Clinical Summary ---
Author Organization [place] [facility] Address [address] [place] [address] Care Team Providers Care Tripoler Name Role Phone Jacqueline Smith MD Primary Care Provider Allergies No known active allergies Medications multivitamin capsuleIndicat ions:Vitamin Deficiency Prevention Take 1 capsule by mouth librarian special collections before breakfast Active cyanocobalamin (Vitamin B-12) 500 mcg tabletIndicati ons:Prevention of Vitamin B12 Deficiency Take 1 tablet (500 mcg total) by mouth librarian special collections before breakfast Active amitriptyline HCl (AMITRIPTYLINE ORAL)Indicatio [...] ons:hypothyroi dism Take 125 mcg by mouth librarian special collections before breakfast. 1 04/02/20 18 025 Discontinued [...] (05/22/2018): Added automatically from request for surgery [id number] Uterine leiomyoma 05/22/2018 Overview (05/22/2018): Added automatically from request for surgery [id number] Oligomenorrhea 05/22/2018 Overview (05/22/2018): Added automatically from request for surgery [id number] Abnormal uterine bleeding (AUB) 05/19/2018 Overview (05/24/2018): [...] for July per pt request. Menorrhagia 04/27/2017 Encounters Date Type Department Care Team Description 10/13/2024 8:15 AM CDT Office Visit [facility] Orthopedics and Sports Medicine [address] [place] [address] [place] [phone] Govind Bess DO Primary osteoarthritis of right knee (Primary Dx); Acute medial meniscus tear of right knee, initial encounter 10/13/2024 8:03 AM CDT - 10/13/2024 11:59 PM CDT Hospital Encounter [facility] Diag Imaging [address] [place] [address], [place] [address] Acute medial meniscus tear of right knee, initial encounter; Primary osteoarthritis of right knee Discharge Disposition: Discharge to home or self care 07/30/2024 8:15 AM PAPERHANGER APPRENTICE Office Visit [facility] Medicine [address] [place] [address] [address] [place] [address] Sybil Clark PA Acute medial meniscus tear of right knee, initial encounter (Primary Dx) 07/18/2024 - 07/18/2024 11:59 PM PAPERHANGER APPRENTICE Hospital Encounter [facility] [employer] [address] [place] [address] Discharge Disposition: Discharge to home or self care from Last 3 Months Surgical History Surgery Date Site/Laterality Comments BREAST LUMPECTOMY Left LCIS ESSURE TUBAL LIGATION 07/02/2011 - 07/01/2012 Bilateral BREAST LUMPECTOMY Left AUGMENTATION MAMMAPLASTY 05/02/2015 - 05/31/2015 Medical History Medical History Date Comments Hypothyroidism Anxiety Lobular carcinoma in situ (LCIS) of left breast History of breast cancer surgery 2011 Abnormal uterine bleeding (AUB) Uterine leiomyoma PONV (postoperative nausea and vomiting) Motion sickness Family History Medical History Relation Name Comments Breast cancer Father's Sister Cervical cancer Neg Hx Colon cancer Neg Hx Endometrial cancer Neg Hx Ovarian cancer Neg Hx Relation Name Status Comments Father's Sister Social History Tobacco Use Types Packs/Day Years [...] on file Legal Sex Female 5:32 PM PAPERHANGER APPRENTICE Gender Identity Not on file Sexual Orientation Not on file 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 Not on file Not on fi le Obstetrics History Para Term AB IAB SAB Ectopic Multiple Livin g Live Births 3 3 3 3 3 Date Outcome GA Total Labor Labor/2nd/3rd Weight Sex Type Anes PTL Genoveva A1 A5 Name Clin Term Vag-S pont Living Complications:None Term Vag-S pont Living Complications:None Term Vag-S pont Living Complications:None Last Filed Vital Signs Vital Sign Reading Time Taken Comments Blood Pressure 140/95 06/26/2018 10:30 AM PAPERHANGER APPRENTICE Pulse 62 06/26/2018 10:30 AM PAPERHANGER APPRENTICE Temperature 36.4 C (97.5 F) 06/26/2018 10:20 AM PAPERHANGER APPRENTICE Respiratory Rate 13 06/26/2018 10:30 AM PAPERHANGER APPRENTICE Oxygen Saturation 95% 06/26/2018 10:30 AM PAPERHANGER APPRENTICE Inhaled Oxygen Concentration - - Weight 58.7 kg (129 lb 8 oz) 06/21/2018 11:19 AM PAPERHANGER APPRENTICE Height 162.6 cm (5' 4 ) 06/21/2018 11:19 AM PAPERHANGER APPRENTICE Body Mass Index 22.23 06/21/2018 11:19 AM PAPERHANGER APPRENTICE Plan of Treatment Health Maintenance Due Date Last Done Comments Breast Cancer Screening-Mammogram 1971 Cervical Cancer Screening 1971 Colon Cancer Screening-Colonoscopy 1971 Depression Screening 1971 Hepatitis C Screening 1971 Hepatitis B Screening 1989 Regular Well Visit/Exam 18-64 1989 Pneumococcal vaccine <65 (1 of 2 - PCV) 1990 Zoster Vaccine (1 of 2) 2021 Covid-19 Vaccine (3 - season) 03/02/202405/2021, 08/19/2020 DTaP/Tdap/Td Vaccine (2 - Td or Tdap) 12/15/2024 Influenza Vaccine (Season Ended) 2025 Procedures Procedure Name Priority Date/Time Associated Diagnosis Comments [place] ARTHROCENTESIS ASPIR&/INJ MAJOR JT/BURSA W/O US Routine 10/13/2024 8:15 AM CDT Acute medial meniscus tear of right knee, initial encounter XR KNEE RIGHT 3 VIEWS Schedule Routine, Read Routine (OP Routine) 10/13/2024 8:11 AM CDT Acute medial meniscus tear of right knee, initial encounter Primary osteoarthritis of right knee MSK MR OUTSIDE REFERENCE Routine 07/18/2024 12:00 AM PAPERHANGER APPRENTICE from Last 3 Months Results * WI ARTHROCENTESIS ASPIR&/INJ MAJOR JT/BURSA W/O US (10/13/2024 [...] - Electronically signed by Joel Morales M.D. T: Report ID: [id number] Reading Location: [id number] Procedure Note Joel Morales MD - 10/13/2024 [...] - Electronically signed by Joel Morales M.D. T: Report ID: [id number] Reading Location: [id number] Govind Bess DO IMG XR PROCEDURES Final Result * MSK MR Outside Reference (07/18/2024 12:00 AM PAPERHANGER APPRENTICE) Narrative DARLENE_CASTILLOB_MHE - 07/30/2024 7:58 AM PAPERHANGER APPRENTICE This order has been auto-finalized and does not contain a result. us Provider Transcribed Order IMG MRI PROCEDURES Fi nal Result RAD_LAUREN_MHB_MHE from Last 3 Months Insurance [facility] Care Teams Tripoler Relationship Specialty Start Date End Date Jacqueline Smith MD [facility] [address] [address] PCP - General Family Practice 10/13/24
--- OUTSIDE RECORDS SUMMARY | 2024-10-16 14:21 | XMS_ITS | Clinical Summary ---
Author Organization [facility] Address [address] [place] [address] Care Team Providers Care Physicist Acoustics Name Role Phone Harjinder Calle MD Primary [...] 2021 COVID-19 Vaccine (2023-2 5 season) 2024 Meningococcal B Vaccine Aged Out No l onger eligible based on patient's age to complete this topic Meningococcal Vaccine Aged Out No stormy vicente eligible based on patient's age to complete this topic Pneumococcal Vaccine: Pediat rics (0 to 5 Years) and At-Risk Patients (6 to 49 Years) Aged Out No longer eligible b ased on patient's age to complete this topic RSV Immunizations Under 20 Months Aged Out No longer eligible based on patient's age to complete this topic Care Teams Physicist Acoustics Relationship Specialty Start Date End Date Harjinder Calle MD PCP - General 07/19/12
== END 2024-10-16 14:07 | disposition home or self-care (01) ==
PROVIDERS: PCP Family Medicine; Visit Provider Family Medicine
DX: Z12.31 Encounter for screening mammogram for malignant neoplasm of breast (principal)
CPT/HCPCS: 77063; 77067

== ENCOUNTER 2025-04-13 03:16 | Day surgery (SDC) | payer OTHER, SELFPAY ==
[2025-04-07 15:07] VITALS: BMI 22.6
--- OUTSIDE RECORDS SUMMARY | 2025-04-13 03:18 | XMS_ITS | Encounter Summary ---
Author Organization [facility] Address [address] [place] [address] Phone Care Team Providers Care Veterinary Dentist Name Role Phone Luc Mercer MD, Harjinder Baum Primary Care Provider Jacqueline Smith MD Primary Care Provider Encounter Details Date Type Department Care Team (Latest Contact Info) Description 05/11/2017 Orders Only [facility] CONVERSION Scanning, Provider Social History Tobacco Use Types Packs/Day Years Used Date Smoking Tobacco: Former Comments Unknown Sex and Gender Information Value Date Recorded Sex Assigned at Not on file Legal Sex Female 5:32 PM TOOL AND DIE SUPERVISOR Gender Identity Not on file Sexual Orientation Not on file documented as of this encounter Plan of Treatment Not on file documented as of this encounter Procedures Procedure Name Priority Date/Time Associated Diagnosis Comments OBSTETRIC/GYNECOLOGY ULTRASONOGRAPHY REPORT 05/11/2017 10:52 AM TOOL AND DIE SUPERVISOR documented in this encounter Results * OBSTETRIC/GYNECOLOGY ULTRASONOGRAPHY REPORT (05/11/2017 10:52 AM TOOL AND DIE SUPERVISOR) Anatomical Region Laterality Modality Ultrasound us Provider Scanning IMG OB US PROCEDURES Final Res ult documented in this encounter Visit Diagnoses Not on filedocumented in this encounter Care Teams Veterinary Dentist Relationship Specialty Start Date End Date Harjinder Calle Jr., MD [address] [place] [address] PCP - General 04/27/17 10/12/24 Jacqueline Smith MD [facility] [address] [address] PCP - General Family Practice 10/13/24 documented as of this encounter
--- OUTSIDE RECORDS SUMMARY | 2025-04-13 03:18 | XMS_ITS | Clinical Summary ---
Author Organization [facility] Address [address] [place] [id number] Care Team Providers Care Industrial Illuminating Engineer Name Role Phone Harjinder Calle MD [...] Screening with HPV 2001 Mammogram Screening 2011 Pneumococcal Vaccine: 50+ Ye ars (1 of 1 - PCV) 2021 Zoster Vaccines (1 of 2) 2021 COVID-19 Vaccine (1 - 2023-2 5 season) 2025 Influenza Adult (#1) 2025 Meningococcal B Vaccine Aged Out No l onger eligible based on patient's age to complete this topic Meningococcal Vaccine Aged Out No stormy ivcente eligible based on patient's age to complete this topic RSV Immunizations Under 20 Months Aged Out No longer eligible based on patient's age to complete this topic Care Teams Industrial Illuminating Engineer Relationship Specialty Start Date End Date Harjinder Calle MD PCP - General 07/19/12
--- OUTSIDE RECORDS SUMMARY | 2025-04-13 03:18 | XMS_ITS | Clinical Summary ---
Author Organization [facility] [address] [facility] Address [address] [place] [address] Care Team Providers Care Jacquard Twine Polisher Operator Name Role Phone Jacqueline Smith MD Primary Care Provider Allergies No known active allergies Medications multivitamin capsuleIndicati ons:Vitamin Deficiency Prevention Take 1 capsule by mouth business planning analyst before breakfast Active cyanocobalamin (Vitamin B-12) 500 mcg tabletIndicatio ns:Prevention of Vitamin B12 Deficiency Take 1 tablet (500 mcg total) by mouth business planning analyst before breakfast Active amitriptyline HCl (AMITRIPTYLINE ORAL)Indication s:Insomnia Take by mouth nightly as needed. Active ALPRAZolam (XANAX) 0.5 mg tablet TAKE 1/2 TABLET ORALLY TWICE A DAY NEEDED FOR ANXIETY 5 Active cyclobenzaprine (FLEXERIL) 5 mg tablet TAKE 1 TABLET BY MOUTH EVERY DAY AT BEDTIME NEEDED FOR MUSCLE SPASM 5 Active meloxicam (MOBIC) 15 mg tablet Take 1 tablet (15 mg total) by mouth daily 5 Active triamcinolone (KENALOG) 0.1 % ointment Apply topically 2 (two) times a day 5 Active levothyroxine (SYNTHROID) 112 mcg tablet Take 1 tablet (112 mcg total) by mouth daily 5 Active tretinoin (RETIN-A) 0.025 % cream APPLY A PEA SIZED AMOUNT TO THE ENTIRE FACE NIGHTLY. DISCONTINUE IF 5 Active Hospital, Clinic, or Other Facility Administered Medication Ordered Dose Route Frequency Start Date End Date Status lidocaine (XYLOCAINE) 10 mg/mL (1 %) injection 2 mLIndications:Admini stration of Local Anesthesia 2 mL One-Time Injection 04/09/2025 5 Ended methylPREDNISolone acetate (DEPO-medrol) injection 40 mgIndications:Acute medial meniscus tear of right knee, initial encounter,Primary osteoarthritis of right knee 40 mg intra-artic One-Time Injection 04/09/2025 5 Ended Active Problems Problem Noted Date Diagnosed Date Acute carpal tunnel syndrome of left wrist 04/09 Anxiety 04/09/2025 COVID 04/09/2025 Elevated blood pressure read ing in office without diagnosis of hypertension 04/09/2025 Exposure to COVID-19 virus 04/09/2025 Hyperkalemia 04/09/2025 Hyperlipidemia 04/09/2025 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 Hypothyroidism, unspecified 04/09/2025 Pharyngitis 04/09/2025 Sinusitis 04/09/2025 Recurrent low back pain 04/09/2025 Right shoulder pain 04/09/2025 URI, acute 04/09/2025 Vitamin D deficiency 04/09/2025 Acute medial meniscus tear of right knee 025 Abnormal uterine bleeding 05/22/2018 Overview (05/22/2018): Added automatically from request for surgery [id number] Uterine leiomyoma 05/22/2018 Overview (05/22/2018): Added automatically from request for surgery [id number] Oligomenorrhea 05/22/2018 Overview (05/22/2018): Added automatically from request for surgery [id number] Abnormal uterine bleeding (AUB) 05/19/2018 Overview (05/24/2018): [...] Encounters Date Type Department Care Team Description 04/09/2025 3:15 PM CDT Office Visit [facility] [address] [place] [address] [place] [phone] Govind Bess DO Acute medial meniscus tear of right knee, initial encounter (Primary Dx); Primary osteoarthritis of right knee from Last 3 Months Surgical History Surgery [...] Date Smoking Tobacco: Some Days Cigarettes 0.5 15.8 Started: 2009 Smokeless Tobacco: Former Tobacco Cessation:Counseling Given: No Alcohol Use Standard Drinks/Week Comments Yes 0 (1 standard drink = 0.6 oz pur e alcohol) Occasional EtOH use Comments No Sex and Gender Information Value Date Recorded Sex Assigned at Not on file Legal Sex Female 5:32 PM SYSTEMS INTEGRATION ADVISOR Gender Identity Not on file Sexual Orientation Not on file 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 Not on file [...] Comments Blood Pressure 140/95 06/26/2018 10:30 AM SYSTEMS INTEGRATION ADVISOR Pulse 62 06/26/2018 10:30 AM SYSTEMS INTEGRATION ADVISOR Temperature 36.4 C (97.5 F) 06/26/2018 10:20 AM SYSTEMS INTEGRATION ADVISOR Respiratory Rate 13 06/26/2018 10:30 AM SYSTEMS INTEGRATION ADVISOR Oxygen Saturation 95% 06/26/2018 10:30 AM SYSTEMS INTEGRATION ADVISOR Inhaled Oxygen Concentration - - Weight 58.7 kg (129 lb 8 oz) 06/21/2018 11:19 AM SYSTEMS INTEGRATION ADVISOR Height 162.6 cm (5' 4) 06/21/2018 11:19 AM SYSTEMS INTEGRATION ADVISOR Body Mass Index 22.23 06/21/2018 11:19 AM SYSTEMS INTEGRATION ADVISOR Plan of Treatment Health Maintenance Due Date Last Done Comments Breast Cancer Screening-Mammogram 1971 Cervical Cancer Screening 1971 Colon Cancer Screening-Colonoscopy 1971 Depression Screening 1971 Hepatitis C Screening 1971 Hepatitis B Screening 1989 Regular Well Visit/Exam 18-64 1989 Pneumococcal vaccine <65 (1 of 2 - PCV) 1990 Zoster Vaccine (1 of 2) 2021 DTaP/Tdap/Td Vaccine (2 - Td or Tdap) 12/15/2024 Covid-19 Vaccine (3 - season) 03/02/202505/2021, 08/19/2020 Influenza Vaccine (#1) 2025 Procedures Procedure Name Priority Date/Time Associated Diagnosis Comments IN ARTHROCENTESIS ASPIR&/INJ MAJOR JT/BURSA W/O US Routine 04/09/2025 3:15 PM CDT Acute medial meniscus tear of right knee, initial encounter Primary osteoarthritis of right knee from Last 3 Months Results * IN ARTHROCENTESIS ASPIR&/INJ MAJOR JT/BURSA W/O US (04/09/2025 3:15 PM CDT) Narrative Govind Bess DO - 04/09/2025 3:15 PM CDT Govind Bess DO 04/10/2025 11:38 AM Large Joint (Hip, Knee, Shoulder) Injection: R knee Performed by: Govind Bess DO Authorized by: Govind Bess DO Large Joint Injection/Aspiration: Consent Given by: Patient Site marked: the procedure site was marked Verbal consent obtained: Yes Procedure Details: Location: Knee Site: R knee Prep: patient was prepped using a clean technique Medications: 2 mL lidocaine 10 mg/mL (1 %); 40 mg methylPREDNISolone acetate 40 mg/mL Patient tolerance: Patient tolerated the procedure well with no immediate complications Result [facility] Govind Bess DO IN CLINIC/BEDSIDE ORDERABLES F inal Result from Last 3 Months Insurance [id number] [place], [place] [address] HMO Care Teams Jacquard Twine Polisher Operator Relationship Specialty Start Date End Date Jacqueline Smith MD [address] [facility] [address] [place] [address] PCP - General Family Practice 10/13/24
[2025-04-13 08:03] VITALS: BP 116/68; PULSE 70; RESP 16; TEMP 36.6; O2SAT 98; BMI 23.1
[2025-04-13] MEDS: LACTATED RINGERS 1,000 ML 150 ML IV CONT (08:22)
--- NOTE | 2025-04-13 08:52 | WPDANESEPPF ---
Anes - Initial Pre Proc Eval Procedure: Operation Date: 04/13/25 09:30 Proposed Procedures p Colonoscopy - Carlos Jones MD Date/Time: 04/13/25 08:52 Surgeon: Carlos Jones MD Pre Op Diagnosis: Other fecal abnormalities Patient Data Age: 54 Gender: F Height: 1.63 m Weight: 61.1 kg Last Vital Signs Temp 36.6 C 04/13/25 08:03 Pulse 70 04/13/25 08:03 Resp 16 04/13/25 08:03 BP 116/68 04/13/25 08:03 Pulse Ox 98 04/13/25 08:03 O2 Del Method Room Air 04/13/25 08:03 Allergies Allergy/AdvReac Type Severity Reaction Status Date / Time No Known Allergies Allergy Unknown Verified 04/13/25 08:12 Home Medications ?Medication ?Instructions ?Recorded ?Confirmed ?Type ruqgbdpaysvb-Jt-uqit-minerals 1 tablet PO DAILY 12/15/20 04/13/25 History (Multiple Vitamin, Womens tablet) triamcinolone acetonide 0.1 % 1 applic topical BID #30 grams 08/15/24 04/13/25 Rx topical ointment tretinoin 0.05 % topical cream 1 applic topical QHS 11/10/24 04/13/25 History valacyclovir 1 gram tablet 1,000 mg PO Q12H PRN cold sores 11/10/24 04/07/25 Rx #20 tabs meloxicam 15 mg tablet 15 mg PO DAILY PRN pain #30 tabs 11/25/24 04/07/25 Rx alprazolam 0.5 mg tablet 0.25 mg (1/2 x 0.5 mg) PO BID PRN 02/13/25 04/07/25 Rx anxiety #30 tabs levothyroxine 112 mcg tablet 112 mcg PO DAILY #90 tabs 03/17/25 04/13/25 Rx Patient hx anesthesia problems: none Family hx anesthesia problems: none Results Review: All pre-operative results and documents have been reviewed as part of the pre-operative evaluation. [facility] Past Medical History Medical History Eczema of both hands Recurrent herpes labialis COVID Well woman exam with routine gynecological exam Vitamin D deficiency Recurrent low back pain Anxiety Hypothyroidism, unspecified Surgical History Surgical History History of lumpectomy of left breast (~10/2011) H/O breast augmentation (~05/2015) Social History Social History Social History: Caffeine-coffee daily Smoking status: Current every day smoker Tobacco type: e-cigarettes/vaping Second hand tobacco smoke exposure: Yes Smoking end date: 07/02/19 Alcohol intake: never Alcohol use details: 2x a week Substance use: never Lack of Transportation: No Lack of Food: Never True Current Housing: I Have Housing Concerned About Future Housing: No Difficulty Paying Gas/Electric Bills: No Difficulty Paying for Meds: No Currently Unemployed: No Education: Associate Degree Difficulty w/ Childcare or Family Care: No Living arrangements: with family Spiritual care concerns: No Anes - Eval Final PreProcedure Day of Procedure 04/13/25 08:52 Patient weight: normal Heart: regular rate and rhythm Lungs: clear to auscultation Airway: Mallampati scale class II Neurological: alert and oriented Last oral intake: >/= 8 hours ASA classification: II Emergent: no Anesthetic plan: proceed Anesthesia type and monitoring: general GIVS and standard monitoring Results Review: All pre-operative results and documents have been reviewed as part of the pre-operative evaluation. Informed Consent: The patient's anesthetic plan and its attendant risks and benefits were discussed with the patient/family/POA. Questions were solicited and answers provided to the satisfaction of the patient/family/POA.
--- NOTE | 2025-04-13 08:57 | PM.HPGS ---
History of Present Illness History of Present Illness Consent: Risks, benefits, and alternatives have been discussed and questions answered. Patient agrees to proceed with procedure. Chief complaint: Other fecal abnormalities Narrative: Kimberly Caputo is a 54 year old female here for first colonoscopy, + cologuard Review of Systems Review of Systems: All systems reviewed & are unremarkable except as noted in HPI and below PMFSH Past Medical History Medical History Eczema of both hands Recurrent herpes labialis COVID Well woman exam with routine gynecological exam Vitamin D deficiency Recurrent low back pain Anxiety Hypothyroidism, unspecified Surgical History Surgical History History of lumpectomy of left breast (~10/2011) H/O breast augmentation (~05/2015) Social History Social History Social History: Caffeine-coffee daily Smoking status: Current every day smoker Tobacco type: e-cigarettes/vaping Second hand tobacco smoke exposure: Yes Smoking end date: 07/02/19 Alcohol intake: never Alcohol use details: 2x a week Substance use: never Lack of Transportation: No Lack of Food: Never True Current Housing: I Have Housing Concerned About Future Housing: No Difficulty Paying Gas/Electric Bills: No Difficulty Paying for Meds: No Currently Unemployed: No Education: Associate Degree Difficulty w/ Childcare or Family Care: No Living arrangements: with family Spiritual care concerns: No Meds Home Medications and Allergies Home Medications ?Medication ?Instructions ?Recorded ?Confirmed ?Type pvspwclmzowo-En-ompi-minerals 1 tablet PO DAILY 12/15/20 04/13/25 History (Multiple Vitamin, Womens tablet) triamcinolone acetonide 0.1 % 1 applic topical BID #30 grams 08/15/24 04/13/25 Rx topical ointment tretinoin 0.05 % topical cream 1 applic topical QHS 11/10/24 04/13/25 History valacyclovir 1 gram tablet 1,000 mg PO Q12H PRN cold sores 11/10/24 04/07/25 Rx #20 tabs meloxicam 15 mg tablet 15 mg PO DAILY PRN pain #30 tabs 11/25/24 04/07/25 Rx alprazolam 0.5 mg tablet 0.25 mg (1/2 x 0.5 mg) PO BID PRN 02/13/25 04/07/25 Rx anxiety #30 tabs levothyroxine 112 mcg tablet 112 mcg PO DAILY #90 tabs 03/17/25 04/13/25 Rx Allergies Allergy/AdvReac Type Severity Reaction Status Date / Time No Known Allergies Allergy Unknown Verified 04/13/25 08:12 Vital Signs Vital Signs - 24 hr 04/13/25 08:03 Temperature 97.8 F Pulse Rate 70 Respiratory Rate 16 Blood Pressure 116/68 Pulse Oximetry 98 Oxygen Delivery Room Air Exam Const: General: comfortable and no acute distress HENMT: Face/Nose/Sinus: Normal nares present Eyes: General: appearance normal, both eyes and all related structures Neck: Neck: no JVD Resp: Auscultation: clear to auscultation bilaterally Cardio: Rate: regular rate Rhythm: regular rhythm GI: Inspection: non-distended GI Palp: Yes Soft to palpation Skin: General skin exam: normal color Extrem: General: normal to inspection Psych: Mental Status: mental status grossly normal Assessment and Plan Assessment and plan (1) Positive colorectal cancer screening using Cologuard test: Code(s): R19.5 - Other fecal abnormalities Status: Acute Assessment and Plan: colonoscopy
[2025-04-13 09:13] VITALS: BP 107/69; PULSE 63; RESP 16; O2SAT 100
[2025-04-13 09:23] VITALS: BP 118/72; PULSE 61; RESP 19; O2SAT 100
[2025-04-13 09:33] VITALS: BP 121/75; PULSE 60; RESP 17; O2SAT 100
== END 2025-04-13 09:39 | disposition home or self-care (01) ==
PROVIDERS: PCP Family Medicine; Referring Provider Nurse Practitioner Family; Visit Provider Internal Medicine Gastroenterology
PROC: 0DJD8ZZ Inspection of Lower Intestinal Tract, Via Natural or Artificial Opening Endoscopic (ICD-10-PCS; CPT 45378; principal; 2025-04-13 09:30)
DX: R19.5 Other fecal abnormalities (principal); K64.8 Other hemorrhoids; E03.9 Hypothyroidism, unspecified; E55.9 Vitamin D deficiency, unspecified; F41.9 Anxiety disorder, unspecified; L30.9 Dermatitis, unspecified; Z98.890 Other specified postprocedural states; F17.290 Nicotine dependence, other tobacco product, uncomplicated
CPT/HCPCS: 45378; J2704; J7120